=== PATIENT | male | born 1990 | race Caucasian/White ===

== ENCOUNTER 2020-07-07 11:03 | Day surgery (SDC) | payer OTHER ==
[~2020-07-07] VITALS: Ht 182.9 cm; Wt 88.5 kg
[~2020-07-07 11:03] MED LIST: ceFAZolin SODIUM IV Push 1 GM VIAL. IVP ONE
[2020-07-07] MEDS ORDERED: MORPHINE SULFATE 2 MG/ML VIAL. IVP PRN (11:15)
[2020-07-07] MEDS ORDERED: PROCHLORPERAZINE 10 MG/2 ML VIAL. IVP PRN (11:15)
[2020-07-07] MEDS ORDERED: HYDROmorphone 2 MG/ML VIAL IVP PRN (11:15)
[2020-07-07] MEDS ORDERED: fentaNYL PF VIAL 100 MCG/2 ML VIAL IVP PRN ×2 (11:15)
[2020-07-07] MEDS ORDERED: IV RINGERS,LACTATED 1000ML 1,000 ML IV SCH (11:15)
[2020-07-07] MEDS ORDERED: OMEP40CA45 PO (11:43)
[2020-07-07] MEDS ORDERED: LIDOCAINE 2% PF 5 ML VIAL. ONE (12:29)
[2020-07-07] MEDS ORDERED: PROPOFOL 10 MG/ML (20ML) VIAL. IV ONE (12:29)
[2020-07-07] MEDS ORDERED: LIDOCAINE 1%/EPI 1:100,000 20 ML VIAL. ONE (12:37)
[2020-07-07] MEDS ORDERED: EPINEPHrine VIAL 30 MG/30 ML VIAL ONE (12:38)
[2020-07-07] MEDS ORDERED: fentaNYL PF VIAL 100 MCG/2 ML VIAL ONE (12:43)
[2020-07-07] MEDS ORDERED: MIDAZOLAM HCL/PF 2 MG/2 ML VIAL. ONE (12:43)
[2020-07-07] MEDS ORDERED: EPINEPHrine NASAL 30 MG/30 ML BOTTLE NS ONE (12:45)
[2020-07-07] MEDS ORDERED: OXYMETAZOLINE 0.05% NASAL SPRAY 30ML BOTTLE. NS ONE (13:12)
[2020-07-07] MEDS ORDERED: SUCCINYLCHOLINE 200 MG/10 ML VIAL. ONE (13:24)
[2020-07-07] MEDS ORDERED: ROCURONIUM 50 MG/5 ML VIAL. ONE (13:36)
[2020-07-07] MEDS ORDERED: NEOSTIGMINE METHYLSULFATE 5 MG/5 ML SYRINGE. ONE (13:39)
[2020-07-07] MEDS ORDERED: GLYCOPYRROLATE 1 MG/5 ML VIAL. ONE (13:39)
[2020-07-07] MEDS ORDERED: PHENYLEPHRINE in 0.9% NACL PF 1 MG/10 ML SYRINGE. IV ONE (13:59)
[2020-07-07] MEDS ORDERED: ePHEDrine PF IN SALINE 50 MG/10 ML SYRINGE. IV ONE (13:59)
[2020-07-07] MEDS ORDERED: DEXAMETHASONE SOD PHOS 4 MG/ML VIAL ONE (14:13)
[2020-07-07] MEDS ORDERED: FAMOTIDINE 20 MG/2 ML VIAL ONE (14:13)
[2020-07-07] MEDS ORDERED: ONDANSETRON PF 4 MG/2 ML VIAL. ONE (14:13)
[2020-07-07] MEDS ORDERED: SEVOFLURANE 61 TO 120 MINUTES. IH ONE (14:14)
[2020-07-07] MEDS ORDERED: GELATIN SPONGE SIZE 12-7MM SPONGE. ONE (14:23)
[2020-07-07] MEDS ORDERED: GELATIN SPONGE SIZE 100. ONE (14:24)
[2020-07-07 15:26] VITALS: BP 158/82
[2020-07-07] MEDS ORDERED: TRAM50TA PO (15:29)
[2020-07-07] MEDS ORDERED: traMADol 50 MG TABLET ONE (15:36)
[2020-07-07] MEDS ORDERED: traMADol 50 MG TABLET PO ONE (15:45)
--- NOTE | 2020-07-08 15:31 | OP ---
DATE OF SURGERY: 07/07/2020 PREOPERATIVE DIAGNOSIS: Deviated nasal septum with inferior turbinate hypertrophy resulting in nasal obstruction. POSTOPERATIVE DIAGNOSIS: Deviated nasal septum with inferior turbinate hypertrophy resulting in nasal obstruction. PROCEDURE PERFORMED: Nasal septoplasty and radiofrequency reduction of inferior nasal turbinates. INDICATION FOR THE PROCEDURE: Nasal obstruction and snoring. ESTIMATED BLOOD LOSS: 20 mL. DESCRIPTION OF THE PROCEDURE: The patient was brought to the operating room and placed on the operating room table in supine position, given a general anesthetic. After adequate airway was established and vital signs were stable, the table was rotated 90 degrees and his nose was decongested using Afrin nasal spray, placed on neurosurgical cottonoids and placed in the nose. His face was then prepped and draped after sterile fashion. The neurosurgical cottonoids were then removed and the nasal septum was injected with 1% lidocaine with epinephrine and saline was injected into the inferior nasal turbinates. The hypertrophic nasal turbinates were then treated by placing a radiofrequency wand in the anterior 1/3 soft tissue of the inferior nasal turbinates, hence applying radiofrequency energy, which resulted in contraction of the inferior turbinate soft tissue. The nasal septum was then addressed by noting that there was a cavity in the right side of the nose with deviation of the nasal septum into the left. An incision was made along the anterior mucocutaneous border and dissection was carried down between the mucoperichondrium and mucoperiosteum elevating the mucous membrane off of the nasal septum. This then allowed an incision to be made along the inferior margin of the nasal septum it from the premaxillary crest up to the palatine bone and vomer. A crossover incision was then created and did mobilize the anterior cartilaginous septum. The deviated bony portion of the septum was then skeletonized and the deviated portion removed using Blakesley forceps. This was accomplished to the extent of the deviation posteriorly the mucous membrane was maintained and intact. The cartilaginous portion was then addressed it from the premaxillary crest. The twisted portion of the crest was then removed using an osteotome. After removal, the twisted cartilaginous portion was addressed in segments mobilizing twisted portions and maintaining midline structure. After the septal mucosa had been and the mobilized cartilaginous septum was stabilized and maintained in the midline, the elevated mucosa was then reapproximated using 3-0 plain suture using a quilting pattern. Then, the incision site was closed using the same suture material. Suction of the nasal passage and nasopharynx was accomplished throughout the procedure to maintain visualization of the addressed soft tissue and nasal septum with complete removal of the nasal drainage, the septum was now in a midline position. Gelfoam was then placed in the nose on each side to maintain position and the procedure was completed. The patient was recovered from his anesthesia and taken to the recovery room in stable condition. ADRIANO IBRAHIM DO DR: TAMIKA/loli JOB#: [id number] / [id number]
== END 2020-07-07 16:01 | disposition home or self-care (01) ==
LOC: SURG 11:03
PROVIDERS: ATTEND Otolaryngology
DX: J34.2 Deviated nasal septum (principal); J34.3 Hypertrophy of nasal turbinates; J34.89 Other specified disorders of nose and nasal sinuses; G47.30 Sleep apnea, unspecified; K21.9 Gastro-esophageal reflux disease without esophagitis; Z87.891 Personal history of nicotine dependence; Z79.899 Other long term (current) drug therapy; Z98.890 Other specified postprocedural states; Z72.89 Other problems related to lifestyle
CPT/HCPCS: 30520; 30801; A4930; J0330; J0690; J0780; J1100; J2250; J2370; J2405; J2704; J2710; J3010; J3490; J0171